=== PATIENT | female | born 1980 | race Caucasian/White ===

== ENCOUNTER 2016-12-18 09:16 | Emergency (ER) | payer BC | END 2016-12-18 12:27 | disposition home or self-care (01) | LOC: ER 09:16 | DX: R10.32 Left lower quadrant pain (principal); R11.0 Nausea; R42 Dizziness and giddiness; R19.7 Diarrhea, unspecified; F31.9 Bipolar disorder, unspecified; Z88.0 Allergy status to penicillin; Z88.1 Allergy status to other antibiotic agents; Z88.2 Allergy status to sulfonamides | CPT/HCPCS: 36415; 96374 ==